=== PATIENT | female | born 1985 ===

== ENCOUNTER 2016-09-28 19:29 | Emergency (ER) | payer BC, OTHER ==
[2016-09-28 19:43] VITALS: PULSE 78; RESP 16; TEMP 98.4; O2SAT 100
[2016-09-28] MEDS ORDERED: Lactated Ringer's 1,000 ML in Lactated Ringer's 1,000 ML IV STA (20:15)
[2016-09-28 20:29] LABS: RBC URINE 2 /hpf (0-3); URINE BACTERIA RARE (<OCC); URINE BILIRUBIN NEGATIVE (NEGATIVE); URINE BLOOD LARGE (NEGATIVE); URINE COLOR YELLOW (YELLOW); URINE GLUCOSE (UA) NEG (Normal); URINE KETONE NEGATIVE (NEGATIVE); URINE LEUKOCYTE ESTERASE MOD Leu/uL (Negative); URINE PROTEIN 30 mg/dL (NEGATIVE); URINE UROBILINOGEN 0.2-1.0 mg/dL (0.2-1.0); WBC URINE 4 /hpf (0-5)
--- NOTE | 2016-09-28 21:17 | ED PDOC ---
HPI: Female Pain Time Seen by Provider: 09/28/16 19:46 Chief Complaint (Nursing): Female Genitourinary Chief Complaint (Provider): Pelvic Pain History Per: Patient History/Exam Limitations: no limitations Onset/Duration Of Symptoms: Days (x2 weeks) Current Symptoms Are (Timing): Still Present Severity: Mild (but worsening) Quality Of Discomfort: Other (right-sided) Associated Symptoms: Other (lightheadedness). denies: Nausea, Vomiting, Diarrhea, Constipation Additional Complaint(s): Lynn Ledesma is a 31 year old female, with no pertinent past medical history , who presents to the ED on 09/28/16 for the evaluation of mild, right-sided pelvic pain that she has experienced x2 weeks, which has worsened since onset. Associated minimal vaginal spotting also reported, with patient stating that she has only used a panty liner thus far to catch the flow; no clots. Associated feelings of lightheadedness and feelings of recent weight gain also reported, though she denies nausea, vomiting, diarrhea or constipation. Of note, patient reports having taken a home test 2 days ago which had resulted in a faint (+) line though she does currently have an IUD in place. Previous abdominal surgeries include a . OB-PLAST[facility] SURGERY NURSE: Dr. Katie García Past Medical History Reviewed: Historical Data, Nursing Documentation, Vital Signs Vital Signs: Last Vital Signs Temp 98.4 F 09/28/16 19:39 Pulse 78 09/28/16 19:39 Resp 16 09/28/16 19:39 BP Pulse Ox 100 09/28/16 19:39 - Medical History PMH: Asthma - Surgical History Surgical History: ( x 2) - Family History Family History: States: Diabetes, Hypertension - Living Arrangements Living Arrangements: With Family - Social History Current smoker - smoking cessation education provided: Yes - Home Medications Home Medications: Ambulatory Orders Medication Instructions Recorded Ciprofloxacin/Ciprofloxa HCl 500 mg PO BID #14 tab 07/04/14 [Ciprofloxacin] traMADol [Ultram] 50 mg PO QID PRN #20 tab 07/04/14 Ibuprofen [Motrin] 600 mg PO Q8 #30 tab 04/25/15 diaZEpam [Valium] 5 mg PO ACB #10 tab 04/25/15 Ibuprofen [Motrin Tab] 600 mg PO Q8 PRN #60 tab 05/16/16 Nitrofurantoin Macrocrystals 1 cap PO BID #14 cap 05/16/16 [Macrobid] Phenazopyridine [Phenazopyridine 200 mg PO Q12 PRN #20 tab 05/16/16 HCl] traMADol [Ultram] 25 mg PO TID PRN #10 tab 05/16/16 - Allergies Allergies/Adverse Reactions: Allergies Allergy/AdvReac Type Severity Reaction Status Date / Time Sulfa (Sulfonamide Allergy RASH Verified 05/16/16 14:03 Antibiotics) Review of Systems ROS Statement: Except As Marked, All Systems Reviewed And Found Negative Constitutional: Positive for: Other (recent feelings of weight gain) Cardiovascular: Positive for: Light Headedness Gastrointestinal: Negative for: Nausea, Vomiting, Diarrhea, Constipation Genitourinary Female: Positive for: Vaginal Bleeding (spotting, no clots), Pelvic Pain (right-sided, mild but worse since onset) Physical Exam - Reviewed Nursing Documentation Reviewed: Yes Vital Signs Reviewed: Yes - Physical Exam Appears: Positive for: Non-toxic, In Acute Distress (minimal painful) Head Exam: Positive for: ATRAUMATIC, NORMOCEPHALIC Skin: Positive for: Normal Color, Warm, Dry. Negative for: Pallor Eye Exam: Positive for: Normal appearance, PERRL Cardiovascular/Chest: Positive for: Regular Rate, Rhythm. Negative for: Murmur Respiratory: Positive for: Normal Breath Sounds. Negative for: Respiratory Distress Gastrointestinal/Abdominal: Positive for: Soft, Tenderness (right suprapubic tenderness to deep palpation; (-)McBurney's). Negative for: Mass, Guarding, Rebound Pelvic Exam: Positive for: External Exam Normal, No Cerv. Motion Tender, Tender Adnexa (right), Other (IUD string visible at Os; examination chaperoned by vp global marketing calvin klein fragrances & cosmeticsMervat Pablo). Negative for: Active Bleeding, Blood, Discharge, Mass Back: Positive for: Normal Inspection. Negative for: L CVA Tenderness, R CVA Tenderness Extremity: Positive for: Normal ROM. Negative for: Swelling Neurologic/Psych: Positive for: Alert, Oriented - Laboratory Results Result Diagrams: 09/28/16 21:18 09/28/16 21:18 - ECG O2 Sat by Pulse Oximetry: 100 (RA) Pulse Ox Interpretation: Normal Medical Decision Making Medical Decision Makin:46 Initial Impression: pelvic pain, vaginal spotting Differential diagnoses include but are not limited to , ectopic , abnormal vaginal bleeding, ovarian cyst Initial Plan: * Transvaginal US * Blood Type/Screen * Labs * Beta HCG, Quantitative * Upreg * Udip * Urinalysis * Chamydia/GC RNA * Lactated Ringer's 1000ml IV Bolus * Reevaluation Accession No. : [id number] Patient Name / ID : BIJAN ALTAMIRANO / [id number] Exam Date : 09/28/2016 21:35:51 ( Approved ) Study Comment : Sex / Age : F / 31Y Creator : JACQUE LIRA Dictator : Finance Officer : Nutritionist Public Health : JACQUE LIRA Approver2 : Report Date : 09/28/2016 22:40:00 My Comment : [facility] Division of Radiology [address] [place] [address] Tel. no. Patient Name: LYNN LEDESMA Pt. Address: [address] [place] [address]. Rec #: [id number] [place] [address]: Matthias GILBERT, Liyah Mcghee Pt CELL Order Location: [facility] : 1985 Female Age: 31 Order #: [id number] Reason for exam: pelvic pain vag bleeding Ultrasound TRANSVAGINAL Exam Date: 09/28/16 This imaging exam was performed at [facility] EXAM: US Pelvis, Transvaginal CLINICAL HISTORY: 31 years old, female; Pain; Pelvic pain; Additional info: Pelvic pain vag bleeding; negative urine test; irregular periods TECHNIQUE: Real-time transvaginal pelvic ultrasound (complete) with image documentation. Transvaginal imaging was used for better evaluation of the endometrium and adnexa. EXAM DATE/TIME: 09/28/2016 8:17 PM COMPARISON: There are no prior studies for comparison. FINDINGS: Uterus: Uterus measures approximately 10 x 4 x 5 cm. The endometrium measures approximately 9.4 mm in width. There is shadowing from an IUD.There are nabothian cysts in the cervix. Right ovary: Right ovary measures approximately 4.5 x 4 x 3.2 cm. There are multiple follicles. There are 2 dominant follicles.There is expected blood flow on Doppler imaging Left ovary: Left ovary measures approximately 3.57 x 1.67 x 2.66 cm. There are multiple small follicles. There is expected blood flow on Doppler imaging Adnexa: There are no adnexal masses. IMPRESSION: Intrauterine device in place; normal sized endometrium; dominant follicles in the right ovary, no torsion Dictated By: Jacque Lira MD, MD Dictated Date/Time: 09/28/162239 Signed By: Jacque Lira MD Date Signed: 2239 Transcribed By: FAM Transcribe Date/Time : 09/28/162239 [facility] Labs unremarkable. Scribe Attestation: Documented by Jackeline Edwards, acting as a scribe for Liyah Rizzo MD. Provider Scribe Attestation: All medical record entries made by the Scribe were at my direction and personally dictated by me. I have reviewed the chart and agree that the record accurately reflects my personal performance of the history, physical exam, medical decision making, and the department course for this patient. I have also personally directed, reviewed, and agree with the discharge instructions and disposition. Disposition - Clinical Impression Clinical Impression: Ovarian cyst, Vaginal bleeding Counseled Patient/Family Regarding: Studies Performed, Diagnosis, Need For Followup - Disposition Referrals: Katie García MD [Staff Provider] - 10/02/16 Disposition: Routine/Home Disposition Time: 22:00 Condition: GOOD Instructions: Ovarian Cyst (ED), Dysfunctional Uterine Bleeding (ED)
[2016-09-28 21:23] LABS: BASO # 0.1 K/uL (0.0-0.2); BASO % 1.1 % (0.0-2.0); EOS # 0.4 K/uL (0.0-0.7); EOS % 3.6 % (0.0-4.0); HEMATOCRIT 38.5 % (34.0-47.0); LYMPH # 2.7 K/uL (1.0-4.3); LYMPH % 27.4 % (20.0-40.0); MEAN CELL VOLUME 87.7 fl (81.0-99.0); MEAN CORPUSCULAR HEMOGLOBIN 28.7 pg (27.0-31.0); MEAN CORPUSCULAR HGB CONC 32.8 g/dL (33.0-37.0); MEAN PLATELET VOLUME 10.6 fl (7.2-11.7); MONO # 0.6 K/uL (0.0-0.8); NEUT # 6.1 K/uL (1.8-7.0); NEUT % 61.9 % (50.0-75.0); NRBC % 0.1 % (0.0-0.0); RED CELL DISTRIBUTION WIDTH 15.3 % (11.5-14.5); WHITE BLOOD COUNT 9.9 K/uL (4.8-10.8)
[2016-09-28 21:50] LABS: ALKALINE PHOSPHATASE 71 U/L (38-126); ALT/SGPT 22 U/L (9-52); AST/SGOT 35 U/L (14-36); BILIRUBIN,TOTAL 0.4 mg/dl (0.2-1.3); BLOOD UREA NITROGEN 14 mg/dl (7-17); CALCIUM 9.5 mg/dL (8.4-10.2); CARBON DIOXIDE 28 mmol/L (22-30); CHLORIDE 101 mmol/L (98-107); GFR AFRICAN-AMERICAN > 60; GLUCOSE,RANDOM 85 mg/dL (65-105); POTASSIUM 4.2 MMOL/L (3.6-5.0); SODIUM 143 mmol/l (132-148); TOTAL PROTEIN 8.8 G/DL (6.3-8.2)
[2016-09-28] MEDS ORDERED: Lactated Ringer's 2,000 ML IV STA (22:39)
--- NOTE | 2016-09-28 22:40 | US ---
EXAM: US Pelvis, Transvaginal CLINICAL HISTORY: 31 years old, female; Pain; Pelvic pain; Additional info: Pelvic pain vag bleeding; negative urine test; irregular periods TECHNIQUE: Real-time transvaginal pelvic ultrasound (complete) with image documentation. Transvaginal imaging was used for better evaluation of the endometrium and adnexa. EXAM DATE/TIME: 09/28/2016 8:17 PM COMPARISON: There are no prior studies for comparison. FINDINGS: Uterus: Uterus measures approximately 10 x 4 x 5 cm. The endometrium measures approximately 9.4 mm in width. There is shadowing from an IUD.There are nabothian cysts in the cervix. Right ovary: Right ovary measures approximately 4.5 x 4 x 3.2 cm. There are multiple follicles. There are 2 dominant follicles.There is expected blood flow on Doppler imaging Left ovary: Left ovary measures approximately 3.57 x 1.67 x 2.66 cm. There are multiple small follicles. There is expected blood flow on Doppler imaging Adnexa: There are no adnexal masses. IMPRESSION: Intrauterine device in place; normal sized endometrium; dominant follicles in the right ovary, no torsion
== END 2016-09-28 23:01 | disposition home or self-care (01) ==
LOC: H.ER 19:29
DX: N83.209 Unspecified ovarian cyst, unspecified side (principal); N93.9 Abnormal uterine and vaginal bleeding, unspecified; R10.2 Pelvic and perineal pain; Z97.5 Presence of (intrauterine) contraceptive device; Z87.09 Personal history of other diseases of the respiratory system; F17.200 Nicotine dependence, unspecified, uncomplicated

== ENCOUNTER 2017-08-13 17:54 | Emergency (ER) | payer MEDICAID, OTHER ==
[2017-08-13 18:50] VITALS: BP 122/73; PULSE 76; RESP 16; TEMP 98.3; O2SAT 99
[2017-08-13] MEDS ORDERED: Lactated Ringer's 1,000 ML IV STA (19:50)
[2017-08-13 20:45] LABS: BASO # 0.1 K/uL (0.0-0.2); BASO % 0.8 % (0.0-2.0); EOS # 0.1 K/uL (0.0-0.7); EOS % 1.3 % (0.0-4.0); LYMPH # 2.6 K/uL (1.0-4.3); LYMPH % 23.5 % (20.0-40.0); MEAN CELL VOLUME 88.3 fl (81.0-99.0); MEAN CORPUSCULAR HEMOGLOBIN 29.2 pg (27.0-31.0); MEAN CORPUSCULAR HGB CONC 33.1 g/dL (33.0-37.0); MEAN PLATELET VOLUME 10.2 fl (7.2-11.7); MONO # 0.6 K/uL (0.0-0.8); MONO % 5.7 % (0.0-10.0); NEUT # 7.6 K/uL (1.8-7.0); NEUT % 68.7 % (50.0-75.0); NRBC % 0.1 % (0.0-0.0); RBC 3.78 Mil/uL (3.80-5.20); RED CELL DISTRIBUTION WIDTH 14.3 % (11.5-14.5)
[2017-08-13 20:59] LABS: ALBUMIN 3.7 g/dL (3.5-5.0); ALT/SGPT 28 U/L (9-52); AST/SGOT 30 U/L (14-36); BLOOD UREA NITROGEN 9 mg/dl (7-17); GFR AFRICAN-AMERICAN > 60; GFR NON-AFRICAN AMERICAN > 60; LIPASE 163 U/L (23-300)
--- NOTE | 2017-08-13 21:09 | ED PDOC ---
HPI: Female Pain Time Seen by Provider: 08/13/17 18:52 Chief Complaint (Nursing): Female Genitourinary Chief Complaint (Provider): pelvic pain and vaginal bleeding History Per: Patient History/Exam Limitations: no limitations Onset/Duration Of Symptoms: Days (x1), Worse Since (pelvis pain ) Current Symptoms Are (Timing): Still Present Quality Of Discomfort: Cramping Associated Symptoms: Nausea Additional Complaint(s): 32 year old female who is 14 weeks with a past medical history of asthma presents to the ED complaining of pelvic pain and vaginal bleeding onset one day ago. Reports cramping pain in the pelvis region and it is worse since onset. The vaginal bleeding is slow and beige color. Associated symptoms include nausea. Also reports she had her ultrasound 8 weeks ago. Fetus looked fine and she had subchorionic bleed. Patient takes vitamins and drinks plenty of water to relieve pain and it does not help. : 6 Para: 10 : 1 PMD: No Family Provider Past Medical History Reviewed: Historical Data, Nursing Documentation, Vital Signs Vital Signs: Last Vital Signs Temp 98.3 F 08/13/17 18:44 Pulse 76 08/13/17 18:44 Resp 16 08/13/17 18:44 BP 122/73 08/13/17 18:44 Pulse Ox 99 08/13/17 18:44 - Medical History PMH: Asthma - Surgical History Surgical History: ( x 2) - Family History Family History: States: Unknown Family Hx - Social History Current smoker - smoking cessation education provided: No - Home Medications Home Medications: Ambulatory Orders Medication Instructions Recorded Ciprofloxacin/Ciprofloxa HCl 500 mg PO BID #14 tab 07/04/14 [Ciprofloxacin] traMADol [Ultram] 50 mg PO QID PRN #20 tab 07/04/14 Ibuprofen [Motrin] 600 mg PO Q8 #30 tab 04/25/15 diaZEpam [Valium] 5 mg PO ACB #10 tab 04/25/15 Ibuprofen [Motrin Tab] 600 mg PO Q8 PRN #60 tab 05/16/16 Nitrofurantoin Macrocrystals 1 cap PO BID #14 cap 05/16/16 [Macrobid] Phenazopyridine [Phenazopyridine 200 mg PO Q12 PRN #20 tab 05/16/16 HCl] traMADol [Ultram] 25 mg PO TID PRN #10 tab 05/16/16 Nitrofurantoin Macrocrystals 1 cap PO BID #14 cap 08/13/17 [Macrobid] - Allergies Allergies/Adverse Reactions: Allergies Allergy/AdvReac Type Severity Reaction Status Date / Time Sulfa (Sulfonamide Allergy RASH Verified 05/16/16 14:03 Antibiotics) Review of Systems ROS Statement: Except As Marked, All Systems Reviewed And Found Negative (As per HPI, otherwise neagtive) Constitutional: Positive for: Other (nausea) Genitourinary Female: Positive for: Dysuria, Frequency, Vaginal Bleeding (slow and beige ), Pelvic Pain (worse), Other (Urine appears darker than usual ) - Laboratory Results Result Diagrams: 08/13/17 20:38 08/13/17 20:38 - ECG O2 Sat by Pulse Oximetry: 99 (RA) Pulse Ox Interpretation: Normal Medical Decision Making Medical Decision Making: Time: 19:49 Initial Impression: Pelvic pain and Differential Diagnosis includes but is not limited to: UTI, demised, threatened miscarriage, and dehydration Initial Plan: --BETA-HCG, quantitative --CMP --Lipase --ED urine --ED dipstick --CBC --Chlamydia/GC --Lactated Ringers 1,000 mls/hr --Zofran 4mg --Urinalysis --OB Transvaginal [US] --Reevaluation Time: 23:00 FINDINGS: Fetus: There is a single living intrauterine . Measurements correlate with a mean gestational age of 13 weeks 1 day. The estimated date of delivery is 02/17/2018. Heart rate: Embryonic/ cardiac activity is identified, at a rate of 164 beats per minute. Presentation: Presentation is breech. Placenta: The placenta is located anteriorly and is normal. No abruption. Amniotic fluid: Unremarkable. MATERNAL: Uterus: Unremarkable. No myometrial mass. Cervix: Unremarkable as visualized. Closed measuring 3.9 cm. Free fluid: No free fluid. IMPRESSION: Live intrauterine , with no evidence of early complications. Follow-Up note: Patient with no further feeding. Stable for discharge and follow up with optical lab technician. Documented by Naomie Erickson acting as a scribe for Liyah Rizzo MD. All medical record entries made by the Scribe were at my direction and personally dictated by me. I have reviewed the chart and agree that the record accurately reflects my personal performance of the history, physical exam, medical decision making, and the department course for this patient. I have also personally directed, reviewed, and agree with the discharge instructions and disposition. Disposition - Clinical Impression Clinical Impression: Abdominal pain in , Vaginal bleeding during , Urinary tract infection - Disposition [facility]errals[facility] (FO[facility] UP AT [facility] THIS [facility] FOR REEVALUATION) Condition: STABLE Prescriptions: Nitrofurantoin Macrocrystals [Macrobid] 1 cap PO BID #14 cap Instructions: Urinary Tract Infections in Adults, Bleeding With , - The Fourth Month
--- NOTE | 2017-08-13 22:39 | US ---
EXAM: US , Transvaginal CLINICAL HISTORY: 32 years old, female; Pain; complicated by abdominal or pelvic pain; Lower; Second trimester; Gestational age or lmp: 05/10/2017; ; Additional info: Abd pain preg TECHNIQUE: Real-time endovaginal obstetrical ultrasound of the maternal pelvis and second or third trimester with image documentation. Endovaginal imaging was used for better evaluation of the fetus and adnexa. COMPARISON: US - PELVIS ULTRASOUND 2014-07-04 01:55 FINDINGS: Fetus: There is a single living intrauterine . Measurements correlate with a mean gestational age of 13 weeks 1 day. The estimated date of delivery is 02/17/2018. Heart rate: Embryonic/ cardiac activity is identified, at a rate of 164 beats per minute. Presentation: Presentation is breech. Placenta: The placenta is located anteriorly and is normal. No abruption. Amniotic fluid: Unremarkable. MATERNAL: Uterus: Unremarkable. No myometrial mass. Cervix: Unremarkable as visualized. Closed measuring 3.9 cm. Free fluid: No free fluid. IMPRESSION: Live intrauterine , with no evidence of early complications.
[2017-08-13 22:56] LABS: SQUAMOUS EPITHIAL 4 /hpf (0-5); URINE BILIRUBIN NEGATIVE (NEGATIVE); URINE BLOOD NEGATIVE (NEGATIVE); URINE CLARITY SLIGHTY-CLOUDY (Clear); URINE COLOR YELLOW (YELLOW); URINE GLUCOSE (UA) NEG (Normal); URINE LEUKOCYTE ESTERASE TRACE Leu/uL (Negative); URINE NITRATE NEGATIVE (NEGATIVE); URINE PROTEIN NEGATIVE (NEGATIVE)
== END 2017-08-13 23:04 | disposition home or self-care (01) ==
LOC: H.ER 17:54
DX: O20.9 Hemorrhage in early pregnancy, unspecified (principal); O23.40 Unspecified infection of urinary tract in pregnancy, unspecified trimester; J45.909 Unspecified asthma, uncomplicated
CPT/HCPCS: 76817; 80053; 81003; 81025; 83690; 84702; 85025; 87491; 87591; 96374; 99284; J2405; J7120